=== PATIENT | male | born 1965 | race African-American/Black ===

== ENCOUNTER 2023-03-06 14:08 | Emergency (ER) | payer OTHER ==
[~2023-03-06] VITALS: Ht 180.3 cm; Wt 89.8 kg
[2023-03-06] MEDS ORDERED: LIPITOR20 MG (14:27)
[2023-03-06] MEDS ORDERED: TRILIPIX135 MG PO (14:28)
[2023-03-06] MEDS ORDERED: ADVIL DUAL ACT1 EACH PO (19:29)
[2023-03-06] MEDS ORDERED: TRAMADOL HCL50 MG PO (19:29)
== END 2023-03-06 19:44 | disposition home or self-care (01) ==
LOC: ER 14:08
DX: S50.01XA Contusion of right elbow, initial encounter (principal); W11.XXXA Fall on and from ladder, initial encounter; Y93.89 Activity, other specified; Y92.098 Other place in other non-institutional residence as the place of occurrence of the external cause; Y99.8 Other external cause status; M53.3 Sacrococcygeal disorders, not elsewhere classified; M54.50 Low back pain, unspecified